=== PATIENT | female | born 1955 | race Caucasian/White ===

== ENCOUNTER → 2019-09-22 | Outpatient (CLI) | payer BC, OTHER | LOC: RAD 15:24 | DX: J47.9 Bronchiectasis, uncomplicated (principal) ==

== ENCOUNTER → 2021-02-28 | Outpatient (CLI) | payer OTHER | LOC: CAT 11:57 | PROVIDERS: ATTEND Family Medicine | DX: J47.9 Bronchiectasis, uncomplicated (principal); R06.02 Shortness of breath; R91.8 Other nonspecific abnormal finding of lung field ==